=== PATIENT | male | born 1950 | race Caucasian/White ===

== ENCOUNTER 2017-02-13 11:51 | Observation (INO) | payer OTHER ==
[2017-02-13] MEDS ORDERED: FAMOTIDINE 20 MG TAB PO ONE (11:55)
[2017-02-13] MEDS ORDERED: DIAZEPAM 5 MG TAB PO ONE (11:55)
[2017-02-13] MEDS ORDERED: diphenhydrAMINE 25 MG CAP PO ONE (11:55)
[2017-02-13] MEDS ORDERED: ASPIRIN EC 325 MG TAB PO ONE (11:55)
[2017-02-13] MEDS ORDERED: NS 1,000 ML IV ONE (11:55)
[2017-02-13 12:34] LABS: % IMMATURE GRANULYOCYTES 0.2 % (0.0-1.1); ABSOLUTE IMMATURE GRANULOCYTES 0.01 10^3/uL (0.00-0.10); ADD DIFF? NO; ADD MORPH? NO; ADD SCAN? NO; ATYPICAL LYMPHOCYTE FLAG 0 (0-99); FRAGMENT RBC FLAG 0 (0-99); HEMATOCRIT 40.5 % (40.0-51.0); HEMOGLOBIN 14.4 g/dL (13.7-17.5); LEFT SHIFT FLG 0 (0-99); LIPEMIA HEMOLYSIS FLAG 90 (0-99); MEAN CELL HEMOGLOBIN 31.1 pg (27.9-34.1); MEAN CELL HEMOGLOBIN CONCENTR. 35.6 g/dL (32.4-36.7); MEAN CELL VOLUME 87.5 fL (81.5-99.8); MEAN PLATELET VOLUME 9.6 fL (8.7-11.7); PLATELET CLUMPS FLAG 0 (0-99); PLATELET COUNT 217 10^3/uL (150-400); RED BLOOD CELL COUNT 4.63 10^6/uL (4.40-6.38); RED CELL DISTRIBUTION WIDTH 13.2 % (11.5-15.2)
--- NOTE | 2017-02-13 12:38 | CPEKG ---
Heart Rate: 95 RR Interval: 632 P-R Interval: 168 QRSD Interval: 174 QT Interval: 428 QTC Interval: 538 P [place]: 47 QRS [place]: 4 T Wave [place]: 175 EKG Severity - ABNORMAL ECG - EKG Impression: SINUS RHYTHM EKG Impression: LEFT BUNDLE BRANCH BLOCK Electronically Signed By: Jose Lara 13-Feb-2017 23:10:37
[2017-02-13 12:43] LABS: INR 1.03 (0.83-1.16); PROTIME(PATIENT) 13.7 SEC (12.0-15.0)
[2017-02-13 13:00] LABS: ANION GAP 17 mEq/L (8-16); CALCIUM 9.8 mg/dL (8.5-10.4); CARBON DIOXIDE 22 mEq/l (22-31); CHLORIDE 107 mEq/L (97-110); CHOLESTEROL 158 mg/dL (140-220); CHOLESTEROL/HDL RATIO 3.76 RATIO (1.00-4.97); CREATININE 1.3 mg/dL (0.7-1.3); GLOMERULAR FILTRATION RATE 56; GLUCOSE 99 mg/dL (70-100); HIGH DENSITY LIPOPROTEIN 42 mg/dL (40-65); LDL/HDL RATIO 2.24 RATIO (1.00-3.64); LOW DENSITY LIPOPROTEIN 94 mg/dL (80-100); MAGNESIUM 1.9 mg/dL (1.6-2.3); NON-HIGH DENSITY LIPOPROTEIN 116 mg/dL (90-129); POTASSIUM 4.4 mEq/L (3.5-5.2); SODIUM 146 mEq/L (134-144); TRIGLYCERIDE 112 mg/dL (40-150); VERY LOW DENSITY LIPOPROTEINS 22 mg/dL (8-25)
--- NOTE | 2017-02-13 13:04 | PDPROPOC ---
Sedation Plan of Care Sedation Plan of Care: mental status noted, patient educated of risks, benefits , alternatives, patient can tolerate sedation ASA Classification: ASA 2 Planned drugs: fentanyl, midazolam Mallampati Score: Class 2 Mallampati Reference Image: Patient passed 3-3-2 rule?: Yes
--- NOTE | 2017-02-13 13:06 | PDGENHP ---
History & Physical Chief Complaint: Chest pressure. New LBBB. New Cardiomypathy LVEF 30-35% History of Present Illness: 66 year old with pmh of hyperlipidemia with episode of chest pressure and sob for one hour approx 5 weeks ago with new LBBB and Anterior Septal Hypokinesis wiht LVEF 30-35%. Pertinent Past, Social, Family History: PMH: Hyperlipidemia Relevant Physical Exam: Awake, Alert, Appropriate.
[2017-02-13] MEDS ORDERED: fentaNYL 100 MCG/2 ML INJ ONE (13:41)
[2017-02-13] MEDS ORDERED: LIDOCAINE 1% 300 MG/30 ML SDV ONE (13:41)
[2017-02-13] MEDS ORDERED: MIDAZOLAM 2 MG/2 ML VIAL ONE (13:41)
[2017-02-13] MEDS ORDERED: IOPAMIDOL (ISOVUE-370) 150 ML BTL IV ONE (13:42)
[2017-02-13] MEDS ORDERED: ATROPINE SULFATE 1 MG/10 ML SYR ONE (14:48)
[2017-02-13] MEDS ORDERED: ONDANSETRON 4 MG/2 ML VIAL IVP PRN (14:56)
[2017-02-13] MEDS ORDERED: HYDROCODONE/APAP 5/325 TAB PO PRN (14:56)
[2017-02-13] MEDS ORDERED: OXYCODONE/APAP 5/325 TAB PO PRN (14:56)
[2017-02-13] MEDS ORDERED: ATROPINE SULFATE 1 MG/10 ML SYR IVP PRN (14:56)
[2017-02-13] MEDS ORDERED: NITROGLYCERIN 0.4 MG BTL SL PRN (14:56)
--- NOTE | 2017-02-13 15:35 | GPN ---
[f rep st] PROCEDURE NOTE DATE OF PROCEDURE: 02/13/2017 INDICATIONS: Episode of acute substernal chest pressure and shortness of breath, coupled with new ca rdiomyopathy with LVEF of 30% to 35% and new left bundle branch block in the setting of coronary risk factors of poorly controlled hyperlipidemia. PROCEDURES PERFORMED: 1. Left heart catheterization. 2. Left coronary angiography. 3. Right coronary angiography. 4. Left ventriculogram. 5. Right common femoral artery angiography. DESCRIPTION OF PROCEDURE: After informed consent was obtained, the patient was brought to the [facility] catheterization lab where he was prepped and draped in a sterile fashion. Using 1% lidocaine, the right groin was anesthetized. Using modified Seldinger technique, a 6-[place] catheter was placed int o the right common femoral artery without complications. A JL4 catheter was used to take images of t he left coronary anatomy in multiple projections. The JL4 catheter was exchanged over a guidewire fo r a JR4 catheter. The JR4 catheter was used to cannulate the right coronary artery. Multiple images of the right coronary anatomy were obtained. The JR4 catheter was exchanged over a guidewire for an angled pigtail catheter. The angled pigtail catheter was used to cross the aortic valve. Left vent riculogram was performed. LVEDP was assessed. Aortic valve gradient was assessed on pull-back. The angled pigtail catheter was removed over a guidewire without complications. Imaging of the right co mmon femoral artery site demonstrated appropriate placement of the 6-[place] sheath at the level of th e mid femoral head. There was a high bifurcation and manual pressure will be held without closure de vice. FINDINGS: 1. Left main: Normal size and caliber. It bifurcates into left anterior descending and left circum flex coronary artery. The left main is normal with no evidence of coronary disease. 2. Left anterior descending: There are some mild luminal irregularities in the proximal and midsegm ent of the vessel. Nothing greater than 10%. There was 1 dominant septal branch that then has multi ple septal chicken sexer branches off this initial septal branch. There are multiple diagonal branches that are sub-2 mm. There is no evidence of coronary disease within the diagonal branch or septal bra nches. 3. Circumflex artery is a codominant vessel. There are some mild luminal irregularities within the circumflex. There is a moderate-size first obtuse marginal branch. Mild luminal irregularities with in the first obtuse marginal branch. 4. Right coronary artery is a codominant vessel with a PDA and PLV branch. There are mild luminal i rregularities within the right coronary artery. HEMODYNAMICS: 1. LVEF 30%. 2. LVEDP 13 mmHg. 3. Gradient: None. CONCLUSION: 1. Mild nonobstructive coronary artery disease. 2. Nonischemic cardiomyopathy with left ventricular ejection fraction of 30%. 3. Left ventricular end-diastolic pressure 13 mmHg. PLAN: The patient will be will be discharged home this afternoon. We will start medical therapy for nonischemic cardiomyopathy, introducing Coreg and lisinopril. /[id number]/MODL
[2017-02-13] MEDS ORDERED: PRAVASTATIN SODIUM 20 MG TAB PO SCH (18:00)
[2017-02-14 05:32] LABS: ANION GAP 10 mEq/L (8-16); CALCIUM 9.1 mg/dL (8.5-10.4); CARBON DIOXIDE 26 mEq/l (22-31); CHLORIDE 107 mEq/L (97-110); CREATININE 1.2 mg/dL (0.7-1.3); GLOMERULAR FILTRATION RATE > 60; GLUCOSE 79 mg/dL (70-100); POTASSIUM 4.7 mEq/L (3.5-5.2); SODIUM 143 mEq/L (134-144)
[2017-02-14 07:39] VITALS: BP 128/91; PULSE 93; RESP 20; TEMP 98.8; O2SAT 93
[2017-02-14] MEDS ORDERED: ASPIRIN 81 MG CHEWABLE TAB PO SCH (09:00)
[2017-02-14] MEDS ORDERED: PANTOPRAZOLE SODIUM 40 MG TAB PO SCH (09:00)
[2017-02-14] MEDS ORDERED: MULTIVITAMINS 1 EACH TAB PO SCH (09:00)
--- NOTE | 2017-02-14 09:55 | ASMTCASEMG ---
Living Arrangements What is your living Answers: With Spouse arrangement? Who do you live with? Type Of Residence What kind of residence do Answers: House you live in? Discharge Plan Comments Coordination Status Comments Notes: Pt is a 66 y/o man admitted for LBBB/cardiomyopathy. Anticipates that pt will d/c independent when medically stable w/ supportive . No therapies ordered at this time. CM available for changes. Plan: Independent Date Signed: 02/14/2017 09:54 AM Electronically Signed By:CORY Dc
--- NOTE | 2017-02-14 13:57 | ASDISCHSUM ---
Discharge Information Plan Status:Home with No Needs Medically Cleared to Leave:02/13/2017 Discharge Date:02/14/2017 12:21 PM D/C Disposition: ADT D/C Disposition:Home, Routine, Self-Care Projected Discharge Date:02/14/2017 12:00 AM Transportation at D/C: Discharge Delay Reason: Follow-Up Date:02/14/2017 12:00 AM Discharge Slot: Final Diagnosis: Placement Information Patient Contact Information Contact Name:GWENDOLYN Relationship: Address:[address] Home Phone: City:[place] Alternate Phone: [facility]/Zip Code:[place] [address] Email: Financial Information Financial Class:HMO and PPO Plans Primary Plan Desc:[employer] Primary Plan Number:[id number] Secondary Plan Desc: Secondary Plan Number: Assessment Information [facility] Initial CM Assessment Living Arrangements What is your living Answers: With Spouse arrangement? Who do you live with? Type Of Residence What kind of residence do Answers: House you live in? Discharge Plan Comments Coordination Status Comments Notes: Pt is a 66 y/o man admitted for LBBB/cardiomyopathy. Anticipates that pt will d/c independent when medically stable w/ supportive . No therapies ordered at this time. CM available for changes. Plan: Independent Date Signed: 02/14/2017 09:54 AM Electronically Signed By:CORY Dc Intervention Information
--- NOTE | 2017-02-15 03:16 | GDS ---
[f rep st] DISCHARGE SUMMARY ADMIT DIAGNOSES: 1. Chest pain. 2. Planned cardiac angiogram. 3. Hyperlipidemia. DISCHARGE DIAGNOSES: 1. Coronary artery disease. 2. Status post cardiac angiogram with no flow-limiting lesions. 3. Nonischemic cardiomyopathy with ejection fraction 30%. 4. Hyperlipidemia. HOSPITAL COURSE: Indication for cardiac angiogram due to acute substernal chest pressure and shortne ss of breath. New cardiomyopathy with a left ventricular ejection fraction of 30% to 35% and new lef t bundle branch block in the setting of coronary risk factors of poorly controlled hyperlipidemia. I t was recommended to further evaluate his cardiac status with a cardiac angiogram. He was in agreeme nt with this plan. He was taken to the cardiac semiconductor lab technician by Dr. Elijah Mtz on 02/13/2017 finding no f low-limiting obstructive coronary artery disease. He does have nonischemic cardiomyopathy with left ventricular ejection fraction of 30%. Plan for medical therapy. ALLERGIES: He has no known allergies. DISCHARGE MEDICATIONS: He will continue Prilosec 20 mg daily, multivitamin 1 daily, lovastatin 40 mg daily, aspirin 81 mg daily, Tylenol 325 mg daily as needed. Dr. Mtz will call in Coreg 3.125 mg tw ice daily. PHYSICAL EXAMINATION: VITAL SIGNS: On day of discharge blood pressure 128/91, heart rate 93. Telem etry showed normal sinus rhythm with idioventricular conduction delay. CARDIAC: Heart rate regular. No murmurs, rubs, or gallops. RESPIRATORY: Lungs sounds are clear to auscultation. No wheezes, r ales, or rhonchi. SKIN: Groin site intact with no bleeding, induration, or pain. No ecchymosis or hematoma. DISCHARGE PLAN: He will follow up with Dr. Mtz in 1 week. He understands to stop at the pharmacy t o spanish moss picker his prescription for Coreg 3.125 mg to be taken twice a day. At this time, he currently is stable for discharge. /[id number]/MODL
== END 2017-02-14 12:21 | disposition home or self-care (01) ==
LOC: FCATH 11:51 → F2W 15:33
PROVIDERS: ADMIT Internal Medicine Cardiovascular Disease; ATTEND Internal Medicine Cardiovascular Disease
PROC: B2151ZZ Fluoroscopy of Left Heart using Low Osmolar Contrast (ICD-10-PCS; principal; 2017-02-13)
PROC: 4A023N7 Measurement of Cardiac Sampling and Pressure, Left Heart, Percutaneous Approach (ICD-10-PCS; principal; 2017-02-13)
PROC: B2111ZZ Fluoroscopy of Multiple Coronary Arteries using Low Osmolar Contrast (ICD-10-PCS; principal; 2017-02-13)
DX: I25.10 Atherosclerotic heart disease of native coronary artery without angina pectoris (principal); I42.9 Cardiomyopathy, unspecified; E78.5 Hyperlipidemia, unspecified
CPT/HCPCS: 93005; 93458; G0378; J0461; J1644; J2250; J3010; Q9967

== ENCOUNTER → 2018-06-04 | Outpatient (CLI) | payer OTHER, MEDICARE | LOC: BHFA 10:45 | PROVIDERS: ATTEND Internal Medicine Cardiovascular Disease | DX: I25.10 Atherosclerotic heart disease of native coronary artery without angina pectoris (principal) ==